=== PATIENT | male | born 1945 | race Caucasian/White ===

== ENCOUNTER 2018-04-12 10:27 | Emergency (ER) | payer OTHER ==
[2018-04-12 10:41] VITALS: TEMP 97.7; BMI 25.7
[2018-04-12 12:07] LABS: BASO % 0.2 % (0.0-2.0); EOS # 0.7 K/uL (0.0-0.7); EOS % 14.3 % (0.0-4.0); HEMOGLOBIN 13.8 g/dL (12.0-18.0); LYMPH # 1.2 K/uL (1.0-4.3); MEAN CELL VOLUME 93.3 fl (80.0-94.0); MEAN CORPUSCULAR HEMOGLOBIN 31.3 pg (27.0-31.0); MEAN CORPUSCULAR HGB CONC 33.6 g/dL (33.0-37.0); MEAN PLATELET VOLUME 7.5 fl (7.2-11.7); MONO # 0.4 K/uL (0.0-0.8); MONO % 7.3 % (0.0-10.0); NEUT # 2.8 K/uL (1.8-7.0); NEUT % 54.2 % (50.0-75.0); RBC 4.4 Mil/uL (4.40-5.90); RED CELL DISTRIBUTION WIDTH 13.3 % (11.5-14.5); WHITE BLOOD COUNT 5.2 K/uL (4.8-10.8)
[2018-04-12 12:17] LABS: INR 1.3 (0.9-1.2); PARTIAL THROMBOPLASTIN TIME 33.8 Seconds (25.6-37.1)
[2018-04-12 12:19] LABS: ALB/GLOB RATIO 1.2 (1.0-2.1); ALT/SGPT 32 U/L (21-72); AST/SGOT 31 U/L (17-59); BLOOD UREA NITROGEN 16 mg/dl (9-20); CALCIUM 9.2 mg/dL (8.4-10.2); GFR AFRICAN-AMERICAN > 60; GFR NON-AFRICAN AMERICAN > 60
--- NOTE | 2018-04-12 12:22 | ED PDOC ---
HPI: Allergic Reaction Time Seen by Provider: 04/12/18 11:29 Chief Complaint (Nursing): Allergic Reaction Chief Complaint (Provider): rash History Per: Patient History/Exam Limitations: no limitations Onset/Duration Of Symptoms: Days (x3) Current Symptoms Are (Timing): Still Present Associated Symptoms: Skin Rash. denies: Itching Additional Complaint(s): Wilbert Urena is a 72 year old male, with no significant past medical history, who presents to the emergency department for evaluation of rash to arms and legs onset for x3 days. Patient is not on any medications and never had similar symptoms before. Patient denies any pain, itchiness, fever, chills, new foods or environmental exposure. No further medical complaints. PMD: None provided. Past Medical History Reviewed: Historical Data, Nursing Documentation, Vital Signs Vital Signs: Last Vital Signs Temp 97.7 F 04/12/18 10:40 Pulse 73 04/12/18 10:40 Resp 16 04/12/18 10:40 BP 133/81 04/12/18 10:40 Pulse Ox 95 04/12/18 10:40 - Medical History PMH: No Chronic Diseases - Surgical History Surgical History: No Surg Hx - Family History Family History: States: No Known Family Hx - Social History Current smoker - smoking cessation education provided: No Alcohol: None Drugs: Denies - Home Medications Home Medications: Ambulatory Orders Medication Instructions Recorded DiphenhydrAMINE [Benadryl] 25 mg PO Q6H PRN #20 cap 04/12/18 Famotidine [Pepcid] 20 mg PO BID #20 tab 04/12/18 Prednisone 50 mg PO DAILY #4 tab 04/12/18 - Allergies Allergies/Adverse Reactions: Allergies Allergy/AdvReac Type Severity Reaction Status Date / Time No Known Allergies Allergy Verified 04/12/18 11:02 Review of Systems ROS Statement: Except As Marked, All Systems Reviewed And Found Negative Constitutional: Negative for: Fever, Chills Skin: Positive for: Rash (arms and legs) Physical Exam - Reviewed Nursing Documentation Reviewed: Yes Vital Signs Reviewed: Yes - Physical Exam Appears: Positive for: Non-toxic, No Acute Distress Head Exam: Positive for: ATRAUMATIC, NORMAL INSPECTION, NORMOCEPHALIC Skin: Positive for: Normal Color, Warm, Dry, Rash (lower legs and left arm macular rash. Blanching, no induration, no scaling or vesicles. No tenderness) Eye Exam: Positive for: Normal appearance, EOMI, PERRL ENT: Positive for: Normal ENT Inspection Neck: Positive for: Painless ROM, Supple Cardiovascular/Chest: Positive for: Regular Rate, Rhythm. Negative for: Murmur Respiratory: Positive for: Normal Breath Sounds. Negative for: Respiratory Distress Extremity: Positive for: Normal ROM (upper and lower extremities). Negative for : Deformity, Swelling Neurologic/Psych: Positive for: Alert, Oriented. Negative for: Motor/Sensory Deficits - Laboratory Results Result Diagrams: 04/12/18 12:02 04/12/18 12:02 - ECG O2 Sat by Pulse Oximetry: 95 (RA) Pulse Ox Interpretation: Normal - Progress Condition: Improved Disposition - Clinical Impression Clinical Impression: Rash - Disposition Referrals: Martínez Grande MD [Family Provider] - Disposition: Routine/Home Disposition Time: 14:42 Condition: IMPROVED Prescriptions: DiphenhydrAMINE [Benadryl] 25 mg PO Q6H PRN #20 cap PRN Reason: Itching / Pruritus Famotidine [Pepcid] 20 mg PO BID #20 tab Prednisone 50 mg PO DAILY #4 tab Instructions: Skin Rash Forms: [employer] (Cymro) Print Language: CZECH Medical Decision Making Medical Decision Making: Time: 11:29 Initial Impression: rash Initial Plan: --CMP --CBC w/ differential --PTT --PT - Pepcid - Benadryl - Prednisone --Reevaluation ----- Scribe Attestation: Documented by Chandrakant Brooks, acting as a scribe for Linnea Jiang MD. Provider Scribe Attestation: All medical record entries made by the Scribe were at my direction and personally dictated by me. I have reviewed the chart and agree that the record accurately reflects my personal performance of the history, physical exam, medical decision making, and the department course for this patient. I have also personally directed, reviewed, and agree with the discharge instructions and disposition.
[2018-04-12 14:47] VITALS: BP 124/72; PULSE 57; RESP 18
[2018-04-13 19:47] VITALS: O2SAT 95
== END 2018-04-12 14:48 | disposition home or self-care (01) ==
LOC: H.ER 10:27
DX: T78.40XA Allergy, unspecified, initial encounter (principal)